=== PATIENT | female | born 1980 | race Caucasian/White ===

== ENCOUNTER → 2022-07-25 16:53 | Outpatient (CLI) | payer OTHER, SELFPAY ==
--- NOTE | 2022-07-25 16:57 | DI.MRI.S_ITS ---
PROCEDURE: MR ABDOMEN WO/W CON INDICATIONS: HEMANGIOMAS TECHNIQUE: Coronal HASTE, axial 2D FLASH in- and [id number]; axial breath-hold T2 FSE. Dynamic axial VIBE during the administration of contrast; post-contrast coronal VIBE or 2D FLASH with fat saturation from the hepatic dome to the iliac crests. Optional diffusion weighted imaging and ADC may be performed. COMPARISON: None. FINDINGS: Image quality: Excellent. Lung bases: No basal pleural effusions. Liver: A 6.9 x 4.7 cm hemangioma is present in segment 2. A 2.3 x 1.6 cm hemangioma is present in segment 6. No suspicious liver lesion identified. Solid organs: Gallbladder is unremarkable. Biliary system is non dilated. Pancreas is normal in morphology. Spleen is normal in size and enhancement. No adrenal nodules. Both kidneys demonstrate normal size and enhancement, without hydronephrosis. Nodes and vessels: No retroperitoneal or mesenteric adenopathy by size criteria. Aorta and inferior vena cava are normal in size. Bowel and peritoneum: Unenhanced bowel loops are normal in caliber. No free fluid. Bones and soft tissues: Bone marrow is normal in overall signal. IMPRESSION: Two hepatic hemangiomas are present as above. No suspicious liver lesion visualized. Dictated by: Javid Rodriguez M.D. on 07/27/2022 at 8:07 Approved by: Javid Rodriguez M.D. on 07/27/2022 at 8:23
== END ==
PROVIDERS: Referring Provider Preventive Medicine Aerospace Medicine; Visit Provider Preventive Medicine Aerospace Medicine
DX: D18.09 Hemangioma of other sites (principal)
CPT/HCPCS: 74183; A9579